=== PATIENT | female | born 1940 ===

== ENCOUNTER → 2025-04-16 | Outpatient (CLI) | payer OTHER | END | disposition home or self-care (01) | LOC: Rad HDHVI 14:56 | PROVIDERS: ATTEND Internal Medicine Cardiovascular Disease | DX: I07.1 Rheumatic tricuspid insufficiency (principal); Z95.0 Presence of cardiac pacemaker | CPT/HCPCS: 93306 ==

== ENCOUNTER 2025-04-29 08:49 | Outpatient (CLI) | payer OTHER ==
[~2025-04-29] VITALS: Ht 165.1 cm; Wt 78.0 kg
[2025-04-29] MEDS ORDERED: ADENOSINE 90 MG/30 ML INJ IV ONE (10:47)
[2025-04-29] MEDS ORDERED: ADENOSINE 66 MG in GIVE UN-DILUTED 0 ML IV ONE (11:45)
== END 2025-04-29 17:00 | disposition home or self-care (01) ==
LOC: Rad HDHVI 08:49
PROVIDERS: ATTEND Internal Medicine Cardiovascular Disease
DX: I44.0 Atrioventricular block, first degree (principal); I49.3 Ventricular premature depolarization; I49.1 Atrial premature depolarization; Z13.6 Encounter for screening for cardiovascular disorders; I10 Essential (primary) hypertension; E78.00 Pure hypercholesterolemia, unspecified; R07.89 Other chest pain; Z95.0 Presence of cardiac pacemaker
CPT/HCPCS: 78452; 93017; A9500; J0153